=== PATIENT | male | born 1985 | race Caucasian/White ===

== ENCOUNTER 2020-05-27 17:12 | Emergency (ER) | payer OTHER, SELFPAY ==
[2020-05-27 17:15] VITALS: BP 120/65; PULSE 91; TEMP 36.6; O2SAT 97
--- NOTE | 2020-05-27 17:28 | ED.GENADUL_ITS ---
Discharge Plan Disposition Patient Disposition: HOME Condition: Good Discharge Details Chief Complaint: Orthopedic Clinical Impression: Flexor tendon rupture of hand, Hand numbness Primary Care Provider: Rigoberto Srinivasan ED Provider: Fay Baez Home Meds and New Rx's Prescriptions: No Action No Known Home Meds RF: 0 Discharge Instructions Instructions: Tendon Rupture (ED) Additional Instructions: Encourage rest, ice, elevation. Please continue with splint until reevaluated by orthopedics. Please call orthopedics tomorrow to schedule follow-up appointment. If you develop fever/chills, knee pain or other new/worsening symptom please seek care urgently once again. 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 He states that symptoms were first noted 1 week ago upon awakening. He denies any pain. No trauma. He has been working throughout [employer] and does report busy schedule recently. However, he denies any trauma at work. States that he did have a distal radius fracture repaired with hardware in 2008. Denies any pain in this area since then. He reports over the past week he has been unable to flex the right thumb or have sensation in the right thumb or index finger. Describes numbness throughout this region. He denies any fevers or chills. Has not noted any erythema, redness, swelling. On exam, patient is resting comfortably. He appears nontoxic. Exam of the right upper extremity is significant for decreased two-point discrimination on the radial side of the right middle finger, entirety of the index and thumb. He is unable to flex the thumb, is able to abduct fully, slight abduction from the thenar eminence. He has good capillary refill. No swelling, erythema or evidence of trauma. He has otherwise intact neurologic exam. Exam of the forearm reveals a small ball of soft tissue in the mid anterior forearm as well as a palpable defect distal to this consistent with tendinous rupture. Good range of motion of his elbow. He does have a positive Tinel's. Consulted with Dr. Valle. He advised that rarely, patient can suffer tendon rupture associated with the hardware from said fracture repair. However, he states that typically this occurs much sooner after initial surgery. He advised placing the patient in a thumb spica splint and that he would follow-up with the patient shortly. I discussed this plan with the patient who is in agreement. I encouraged rest, ice, elevation. If he develops discomfort he will use Tylenol or ibuprofen. Return precautions were given. All of his questions and concerns were addressed and he is in agreement with this plan. HPI General Mode of arrival: ambulatory . Date/Time Provider Initiated Documentation: 05/27/20 17:28 . Limitations to Documentation: no limitations . Information obtained by: patient and RN notes reviewed . History of Present Illness 34 year old M presents to the emergency department with the chief complaint of right thumb numbness, difficulty with ROM, described as mild (denies any pain), Quality is described as other (numbness ), and is localized to the right and upper extremity. Patient reports no radiation. Patient started experiencing this week(s) (1) and it has been constant. No relieving factors improve symptom(s), No exacerbating factors reported . Patient notes no other symptoms.. Patient did receive the following treatments prior to arrival, none Related Data Home Medications Medication Instructions Recorded Confirmed Unknown [No Known Home Meds] 05/27/20 05/27/20 Allergies Allergy/AdvReac Type Severity Reaction Status Date / Time levofloxacin [From Levaquin] Allergy Intermediate Hives Verified 05/27/20 17:19 Penicillins Allergy Intermediate Anaphylaxsi Unverified 05/27/20 17:19 s venom-honey bee Allergy Unknown Unverified 05/27/20 17:19 [bee venom (honey bee)] General Stated Complaint: Orthopedic BAN: 4 Review of Systems Constitutional Constitutional: Reports as per HPI, Denies chills, Denies fever(s), Denies headache(s) and Denies weakness ENT Ears, Nose, Mouth, and Throat: Denies headache(s) Cardiovascular Cardiovascular: Reports as per HPI Respiratory Respiratory: Reports as per HPI and Denies cough Musculoskeletal Musculoskeletal: Reports as per HPI and Reports numbness Integumentary/Breasts Skin/Breast: Reports as per HPI, Denies rash and Denies wounds Neurologic Neurologic: Reports as per HPI, Denies headache(s), Reports numbness, Reports sensory deficit and Denies weakness [facility] Surgical History appendectomy, laparoscopic (06/24/16) Social History Smoking/Tobacco Use Status: Current every day Tobacco Type: cigarettes Alcohol Intake: current Alcohol Intake frequency: a few times a week Alcohol type: beer and hard liquor Drug use: Never Substance use type: does not use Do you feel safe at home: Yes Do you feel safe in your relationship?: Yes Exam Const General: cooperative, healthy appearing, comfortable, no acute distress, well developed and well groomed Nutritional Appearance: average body habitus and well nourished Orientation: alert and awake Resp Effort & Inspection: normal respiratory effort, able to speak in complete sentences and no respiratory distress Cardio Rate: regular rate Rhythm: regular rhythm Skin General skin exam: no rashes or lesions noted Lesions: no lesions Rashes: no rashes Trauma: no lacerations or abrasions Neuro General: patient alert and patient awake Cognition: normal cognition Speech: speech normal Gait: normal gait Motor: muscle tone normal throughout Sensory Exam: sensory deficits noted (sensation lacking in radial side of right middle as well as index and thumb) Extrem Right upper extremity: normal to inspection, normal capillary refill, no joint enlargement, elbow/forearm Details: swelling (focal area of swelling mid forearm with palpable defect distally); no tenderness, wrist Details: normal to ins pection, normal ROM, deformity (palpable defect concerning for tendon rupture), normal vascular exam and radial pulse present; no tenderness, no swelling and Tinel's positive (positive) and hand Details: normal to inspection, normal capillary refill, neurosensory exam abnormal Details: median nerve sensory function normal Details: decreased two-point discrimination and tendon exam abnormal Location: function absent (Flexion of the thumb); ROM limited and no edema Psych Appearance: grossly normal and well kempt Mental Status: mental status grossly normal Speech and Movement: speech and movement normal Course Vital Signs Vital signs: Vital Signs Temperature 36.6 C 05/27/20 17:15 Pulse 91 H 05/27/20 17:15 Blood Pressure 120/65 05/27/20 17:15 Pulse Oximetry 97 05/27/20 17:15 Temperature 36.6 C 05/27/20 17:15 Temperature Source Temporal Artery Scan 05/27/20 17:15 Pulse 91 H 05/27/20 17:15 Respiratory Effort Non-Labored 05/27/20 17:17 Blood Pressure 120/65 05/27/20 17:15 Blood Pressure Position Sitting 05/27/20 17:15 Pulse Oximetry 97 05/27/20 17:15 Oxygen Delivery Method Room Air 05/27/20 17:15 Oxygen Flow Rate 0 05/27/20 17:15 Pain Level 0 05/27/20 17:15
== END 2020-05-27 18:20 | disposition home or self-care (01) ==
PROVIDERS: Emergency Provider Physician Assistant; PCP Internal Medicine
DX: M66.341 Spontaneous rupture of flexor tendons, right hand (principal); R20.0 Anesthesia of skin
CPT/HCPCS: 29125; 99283; L3807

== ENCOUNTER 2020-06-04 09:16 | Outpatient (CLI) | payer OTHER, SELFPAY ==
--- NOTE | 2020-06-04 08:45 | DI.RAD_ITS ---
EXAM: XR WRIST RT COMPLETE INDICATION: WRIST PAIN. COMPARISON: CR RIGHT WRIST COMPLETE from 03/31/2010 TECHNIQUE: 2D digital imaging was performed. FINDINGS: A volar fixation plate is again noted along the distal radius. There is minimal deformity of the dis xochilt radius and minimal deformity at the articular surface. A nonunited ulnar styloid fracture is see n. There are no abnormal bony lucencies. The carpal alignment appears normal. Impression: Old distal radial fracture and hardware. DATA REPOSITORY: RADIATION DOSE DELIVERED:
== END 2020-06-04 09:36 ==
PROVIDERS: PCP Internal Medicine; Referring Provider Internal Medicine; Visit Provider Orthopaedic Surgery
DX: M25.531 Pain in right wrist (principal); Z96.9 Presence of functional implant, unspecified; Z87.81 Personal history of (healed) traumatic fracture
CPT/HCPCS: 73110

== ENCOUNTER 2020-09-23 07:49 | Emergency (ER) | payer OTHER, SELFPAY ==
[2020-09-23 07:54] VITALS: BP 134/81; PULSE 83; RESP 17; TEMP 36.4; O2SAT 100
--- NOTE | 2020-09-23 07:54 | ED.GENADUL_ITS ---
Discharge Plan Disposition Patient Disposition: HOME Condition: Stable Discharge Details Clinical Impression: Facial swelling Primary Care Provider: Rigoberto Srinivasan ED Provider: Dilma Winn Home Meds and New Rx's Prescriptions: New prednisone 20 mg tablet 40 mg PO DAILY Qty: 8 RF: 0 doxycycline hyclate 100 mg capsule 100 mg PO BID Qty: 20 RF: 0 Discharge Instructions Instructions: Doxycycline (By mouth), Prednisone (By mouth), Cellulitis (DC), General Allergic Reaction (ED) Additional Instructions: Please return immediately to the emergency department if you develop any new or worsening symptoms, if your condition does not improve as expected, or if you become otherwise concerned. It is extremely important that you call soon as possible to make an appointment to be seen in follow-up for this visit by your primary care doctor. It is not clear whether the swelling in your lips and face represents an infection. You have been prescribed an antibiotic. Please do not take the antibiotic unless you develop redness or pain in the areas of swelling. If you do decide to start the antibiotics based on a change in symptoms. You need to be seen immediately in follow-up, either with your primary care doctor or in the emergency department. Referrals: Rigoberto Srinivasan MD [Primary Care Provider] - Discharge Data Discharge Date/Time-TO BE ENTERED AT DEPARTURE: 09/23/20 09:51 Medical Decision Making Jamie Kimble is a 34 y/o man without reported history of major medical problems who presented to the emergency department with facial swelling. On exam patient is well and nontoxic-appearing. There is moderate edema of the upper lip, mild edema bilateral medial maxillary areas, faint erythema of the left maxillary area. No intraoral lesion, no facial tenderness. Exam/history is not consistent with Josemanuel's angina, abscess, other deep space infection, impending airway compromise, sepsis, preseptal/orbital cellulitis. Concern for allergic/inflammatory reaction versus less likely cellulitis. Plan for p.o. prednisone, screening labs. Patient is driving, will hold Benadryl for now. Labs reviewed: normal WBC, no left shift. Mildly elevated CRP. Negative procalcitonin. Doubt cellulitis at this time. Plan for prescription for prednisone burst. Also plan for prescription for doxycycline. I had a lengthy discussion with the patient regarding filling doxycycline prescription if he were to develop pain in the area of the swelling or redness in an area of the swelling. Also that if there does seem to be worsening and he begins taking the antibiotic that he would need to be seen immediately in follow-up for augustus ssessment, either same day at PCPs office or here at the emergency department. I had a lengthy discussion with Patient regarding return to emergency department precautions, home care, and importance of outpatient follow-up. Pt verbalizes understanding of the plan and is amenable. Patient discharged to home with clear plan for outpatient follow-up. All questions were answered. Disposition decision was made weighing the risks and benefits of hospitalization versus outpatient treatment, the risk for further decompensation, and the patient's wishes. Medical Records Medical records reviewed: Yes I reviewed the patient's medical records. Lab Data Lab results reviewed: Yes I reviewed the patient's lab results. Labs: Laboratory Tests Range/Units 09/23/20 09/23/20 09/23/20 08:14 08:14 08:14 WBC (4.4-10.8) 10^3/uL 9.70 RBC (4.36-5.78) 10^6/uL 5.08 Hgb (13.5-17.5) g/dL 15.8 Hct (40.0-50.0) % 46.3 MCV (80-95) fL 91.1 MCH (27.0-33.0) pg 31.1 MCHC (32.0-36.0) % 34.1 RDW (11.8-14.1) % 12.5 Plt Count (130-400) 10^3/uL 249 MPV (8.0-11.0) fL 9.8 Immature Gran % 0.3 Neutrophils % 71.9 Lymphocytes % 15.3 Monocytes % 9.1 Eosinophils % 3.0 Basophils % 0.4 Nucleated RBC % % 0 Absolute Neutrophils (1.2-6.7) 10^3/uL 6.98 H Absolute Lymphocytes (1.2-3.4) 10^3/uL 1.48 Absolute Monocytes (0.1-0.8) 10^3/uL 0.88 H Absolute Eosinophils (0.0-0.7) 10^3/uL 0.29 Absolute Basophils (0.0-0.2) 10^3/uL 0.04 Sodium (136-145) mmol/L 139 Potassium (3.5-5.1) mmol/L 4.1 Chloride (98-107) mmol/L 104 Carbon Dioxide (21.0-32.0) mmol/L 26.8 Anion Gap (3-11) mmol/L 8.2 BUN (7-18) mg/dL 14 Creatinine (0.70-1.30) mg/dL 1.11 Estimated GFR/1.73 m2 (mL/min/1.73m2) >= 60.00 Glucose (74-106) mg/dL 119 H Calcium (8.5-10.1) mg/dL 9.2 Total Bilirubin (0.2-1.0) mg/dL 0.6 AST (15-37) U/L 18 ALT (16-63) U/L 36 Alkaline Phosphatase (46-116) U/L 83 C-Reactive Protein (0.0-0.3) mg/dL 2.73 H Total Protein (6.4-8.2) g/dL 8.1 Albumin (3.4-5.0) g/dL 3.9 Procalcitonin ng/mL < 0.1 HPI General Mode of arrival: ambulatory . Date/Time Provider Initiated Documentation: 09/23/20 07:53 . Limitations to Documentation: no limitations . Information obtained by: patient, RN notes reviewed and old records reviewed . HPI Narrative: Jamie Kimble is a 34-year-old man without reported history of major medical problems presenting to emergency department facial swelling. Patient reports that yesterday morning he woke up and noticed that his upper lip seems somewhat swollen. Patient was unconcerned, thought that may be an insect that bit him. Patient states that throughout the day swelling of his lips seem to progress somewhat. He took Benadryl yesterday without effect. Patient reports that this morning he woke up and noticed that she had mild swelling in the area around his nose bilaterally, also with continued upper lip swelling. Patient reports that he feels otherwise very well and in his usual state of health. He denies any pain in the areas of swelling or otherwise, fever, rash, shortness of breath, cough, vomiting, diarrhea, numbness, weakness. Patient states he has never had similar symptoms in the past. Patient reports that on 09/20 he underwent a vasectomy. No other unusual recent events. Patient is negative no inciting factor. No new medications, no new soaps, no new foods, no trauma. Denies any changes inside of his mouth. No difficulty swallowing. Has been eating and drinking as usual. Related Data Home Medications Medication Instructions Recorded Confirmed doxycycline hyclate 100 mg PO BID #20 cap 09/23/20 prednisone 40 mg PO DAILY #8 tab 09/23/20 Previous Rx's Medication Instructions Recorded doxycycline hyclate 100 mg PO BID #20 cap 09/23/20 prednisone 40 mg PO DAILY #8 tab 09/23/20 Allergies Allergy/AdvReac Type Severity Reaction Status Date / Time levofloxacin [From Levaquin] Allergy Intermediate Hives Verified 09/23/20 07:58 Penicillins Allergy Intermediate Anaphylaxsi Unverified 09/23/20 07:58 s venom-honey bee Allergy Unknown Unverified 09/23/20 07:58 [bee venom (honey bee)] General BAN: 4 Review of Systems Narrative: Constitutional: denies fevers Eyes: denies eye pain, eye redness, visual changes ENT: denies ear pain, dental pain, sore throat, difficulty swallowing, facial pain, intraoral swelling, reports swelling of the upper lip and face around the nose Cardiovascular: denies chest pain Respiratory: denies SOB, cough GI: denies abdominal pain, vomiting, diarrhea : denies flank pain MSK: denies back pain, neck pain, arthralgias, myalgias Skin: denies rash Neuro: denies headaches, numbness, weakness PFSH Surgical History appendectomy, laparoscopic (06/24/16) Social History Smoking/Tobacco Use Status: Current every day Tobacco Type: cigarettes Smoking risk assessment performed?: Yes Alcohol Intake: current Alcohol Intake frequency: a few times a week Alcohol type: beer and hard liquor Drug use: Occasionally Substance use type: marijuana Current gender identity: male Do you feel safe at home: Yes Do you feel safe in your relationship?: Yes Exam Narrative Exam Narrative: Constitutional: well and [id number], pleasant, conversing normally HENT: head atraumatic/normocephalic, mucous membranes moist, moderate edema of the upper lip, normal examination of the lower lip, poor dentition, otherwise unremarkable examination of intraoral cavity and pharynx, uvula midline, no tongue elevation, no intraoral lesion, mild edema bilateral medial maxillary areas, faint erythema of the left maxillary area, no facial or lip tenderness to palpation. Normal voice Eyes: conjunctiva normal, sclera normal, pupils 3mm b/l Neck: no stridor, normal ROM, trachea midline Resp: normal work of breathing, speaking in full sentences Cardio: normal rate, normal rhythm Skin: warm, dry, normal color, no rash Neuro: alert, not altered, grossly non-focal, normal tone Ext: Moving all extremities equally Psych: normal mood, normal affect, normal behavior
[2020-09-23 08:23] LABS: Abs Immature Grans 0.03 10^3/uL (0.0-0.06); Absolute Basophil Count 0.04 10^3/uL (0.0-0.2); Absolute Eosinophil Count 0.29 10^3/uL (0.0-0.7); Absolute Lymphocyte Count 1.48 10^3/uL (1.2-3.4); Absolute Monocyte Count 0.88 10^3/uL (0.1-0.8); Absolute Neutrophil Count 6.98 10^3/uL (1.2-6.7); Basophils % 0.4; HCT 46.3 % (40.0-50.0); HGB 15.8 g/dL (13.5-17.5); Immature Grans % 0.3; Lymphocytes % 15.3; MCH 31.1 pg (27.0-33.0); MCHC 34.1 % (32.0-36.0); MCV 91.1 fL (80-95); MPV 9.8 fL (8.0-11.0); Monocytes % 9.1; Neutrophils % 71.9; Nucleated RBC 0 %; Platelet Count 249 10^3/uL (130-400); RBC 5.08 10^6/uL (4.36-5.78); RDW 12.5 % (11.8-14.1); RDW-SD 41.4 fL
[2020-09-23] MEDS: predniSONE 20 MG TAB 60 MG PO (08:24)
[2020-09-23 08:40] LABS: ALT 36 U/L (16-63); AST 18 U/L (15-37); Albumin 3.9 g/dL (3.4-5.0); Alkaline Phosphatase 83 U/L (46-116); Anion Gap 8.2 mmol/L (3-11); BUN 14 mg/dL (7-18); Bilirubin, Total 0.6 mg/dL (0.2-1.0); C-Reactive Protein 2.73 mg/dL (0.0-0.3); CO2 26.8 mmol/L (21.0-32.0); CREATININE 1.11 mg/dL (0.70-1.30); Calcium 9.2 mg/dL (8.5-10.1); Chloride 104 mmol/L (98-107); Glucose 119 mg/dL (74-106); Potassium 4.1 mmol/L (3.5-5.1); Sodium 139 mmol/L (136-145); Total Protein 8.1 g/dL (6.4-8.2)
[2020-09-23 09:05] LABS: Procalcitonin < 0.1 ng/mL
[2020-09-23 09:41] VITALS: BP 108/67; PULSE 85; RESP 17; TEMP 36.4; O2SAT 97
== END 2020-09-23 09:51 | disposition home or self-care (01) ==
PROVIDERS: Emergency Provider Student in an Organized Health Care Education/Training Program; PCP Internal Medicine
DX: R60.0 Localized edema (principal)
CPT/HCPCS: 36415; 80053; 84145; 99283; 85025; 86140; J7512

== ENCOUNTER 2021-02-27 19:44 | Emergency (ER) | payer OTHER, SELFPAY ==
[2021-02-27 19:47] VITALS: BP 131/89; PULSE 60; RESP 18; TEMP 36.4; O2SAT 100
--- NOTE | 2021-02-27 19:54 | W.ED.GENAD ---
Discharge Plan Disposition Patient Disposition: HOME Condition: Stable Discharge Details Clinical Impression: Fracture of distal phalanx of finger of left hand Primary Care Provider: Rigoberto Srinivasan ED Provider: Lucía Peguero Home Meds and New Rx's Prescriptions: No Action prednisone 20 mg tablet 40 mg PO DAILY Qty: 8 RF: 0 doxycycline hyclate 100 mg capsule 100 mg PO BID Qty: 20 RF: 0 Discharge Instructions Instructions: Finger Fracture (ED) Additional Instructions: Follow up with primary care provider in 3-5 days. Return to ED sooner if any worsening or concerns. Increase oral fluids. Please take Tylenol or Ibuprofen with food every 4-6 hours as needed for pain and swelling. Wear the splint as needed for comfort, rest ice compression elevation Referrals: Rigoberto Srinivasan MD [Primary Care Provider] - Discharge Data Discharge Date/Time-TO BE ENTERED AT DEPARTURE: 02/27/21 20:45 Medical Decision Making <Lucía Peguero - Last Filed: 02/27/21 21:42> 35-year-old male presents to the ER chief complaint of left middle finger bruising status post crush injury 4 days ago. He reports a subungual hematoma which he attempted to reduce the pressure with his nail with a safety pin. There is very little puncture reyes noted to his nail. He reports he did not get a lot of blood expressed. He is not in severe pain upon arrival. He does have some tenderness with the AC joint pain. Cap refill less than 2 seconds to the distal finger. No other injuries or complaints at this time. Imaging protocol: XR Left fingers. Views: Minimum 2 views. COMPARISON: No relevant prior studies available. FINDINGS: Bones/joints: There is comminuted, nondisplaced tuft fracture of the distal left 3rd phalanx. Fracture is essentially anatomic in alignment. No articular involvement. No additional fracture identified. No acute joint dislocation. Joint spaces appear preserved. Soft tissues: Moderate soft tissue edema of the distal left 3rd finger. IMPRESSION: Comminuted, nondisplaced tuft fracture of the distal left 3rd phalanx without articular involvement. Discussed option for evacuation of the subungual hematoma with cautery patient declined at this time. Placed in a aluminum splint discussed RICE procedures for home and follow-up with Ortho patient verbalized understanding <Geovanny Winn MD - Last Filed: 03/04/21 22:23> Patient seen, examined, and discussed with PASCUAL Peguero. I agree with treatment plan as discussed/documented. Plan for splint and follow-up orthopedics. HPI <Lucía Peguero - Last Filed: 02/27/21 21:42> General Mode of arrival: ambulatory. Date/Time Provider Initiated Documentation: 02/27/21 19:54. Limitations to Documentation: no limitations. Information obtained by: patient. HPI Narrative: 35-year-old male presents to the ER chief complaint of left middle finger bruising status post crush injury 4 days ago. He reports a subungual hematoma which he attempted to reduce the pressure with his nail with a safety pin. There is very little puncture reyes noted to his nail. He reports he did not get a lot of blood expressed. He is not in severe pain upon arrival. He does have some tenderness with the AC joint pain. Cap refill less than 2 seconds to the distal finger. No other injuries or complaints at this time. Related Data Home Medications Medication Instructions Recorded Confirmed doxycycline hyclate 100 mg PO BID #20 cap 09/23/20 prednisone 40 mg PO DAILY #8 tab 09/23/20 Previous Rx's Medication Instructions Recorded doxycycline hyclate 100 mg PO BID #20 cap 09/23/20 prednisone 40 mg PO DAILY #8 tab 09/23/20 Allergies Allergy/AdvReac Type Severity Reaction Status Date / Time levofloxacin [From Levaquin] Allergy Intermediate Hives Verified 09/23/20 07:58 Penicillins Allergy Intermediate Anaphylaxsi Unverified 09/23/20 07:58 s venom-honey bee Allergy Unknown Unverified 09/23/20 07:58 [bee venom (honey bee)] General Stated Complaint: GenMedical BAN: 5 Review of Systems <Lucía Peguero - Last Filed: 02/27/21 21:42> All systems reviewed & are unremarkable except as noted in HPI and below Musculoskeletal Musculoskeletal: Reports arthralgias (Left distal Finger subungal hematoma) and Reports joint swelling PFSH <Lucía Peguero - Last Filed: 02/27/21 21:42> Surgical History appendectomy, laparoscopic (06/24/16) Social History Smoking/Tobacco Use Status: Current every day Tobacco Type: cigarettes Smoking risk assessment performed?: Yes Alcohol Intake: current Alcohol Intake frequency: a few times a week Alcohol type: beer and hard liquor Drug use: Occasionally Substance use type: marijuana Current gender identity: male Do you feel safe at home: Yes Do you feel safe in your relationship?: Yes Exam <Lucíamagda Peguero - Last Filed: 02/27/21 21:42> Extrem Left upper extremity: hand Details: normal capillary refill, neurosensory exam normal, tenderness, swelling, ecchymosis and puncture wound (Nail) Course <Lucíamagda Rodriguezton - Last Filed: 02/27/21 21:42> Vital Signs Vital signs: Vital Signs Temperature 36.4 C L 02/27/21 19:47 Pulse 60 02/27/21 19:47 Respiratory Rate 18 02/27/21 19:47 Blood Pressure 131/89 02/27/21 19:47 Pulse Oximetry 100 02/27/21 19:47 Temperature 36.4 C L 02/27/21 19:47 Temperature Source Temporal Artery Scan 02/27/21 19:47 Pulse 60 02/27/21 19:47 Respiratory Rate 18 02/27/21 19:47 Blood Pressure 131/89 02/27/21 19:47 Blood Pressure Position Sitting 02/27/21 19:47 Pulse Oximetry 100 02/27/21 19:47 Oxygen Delivery Method Room Air 02/27/21 19:47 Oxygen Flow Rate 0 02/27/21 19:47 Pain Level 0 02/27/21 19:47
--- NOTE | 2021-02-27 20:11 | DI.RAD_ITS ---
Exam(s) XR FINGER LT MIDDLE EXAM: XR FINGER LT MIDDLE CLINICAL HISTORY: Crush injury, R/O fracture. TECHNIQUE: 2D digital imaging was performed. COMPARISON: None. FINDINGS: BONES: Comminuted fracture of the tuft with fracture lines extending through the mid to proximal aspe ct of the distal phalanx. There is no separation at the articular surface. No additional fractures are seen.. No bony destructive lesion is seen. JOINTS: No dislocation present. SOFT TISSUE: Swelling around the distal phalanx. No foreign body or abnormal gas collection. IMPRESSION: Comminuted fracture of the distal phalanx. DATA REPOSITORY: RADIATION DOSE DELIVERED:
--- NOTE | 2021-02-27 20:21 | DI.VRAD_ITS ---
PROCEDURE INFORMATION: Exam: XR Left Finger(s) Exam date and time: 02/27/2021 7:54 PM Age: 35 years old Clinical indication: Injury or trauma; Other: Crush injury; Blunt trauma (contusions or hematomas); Left; Middle finger TECHNIQUE: Imaging protocol: XR Left fingers. Views: Minimum 2 views. COMPARISON: No relevant prior studies available. FINDINGS: Bones/joints: There is comminuted, nondisplaced tuft fracture of the distal left 3rd phalanx. Fracture is essentially anatomic in alignment. No articular involvement. No additional fracture identified. No acute joint dislocation. Joint spaces appear preserved. Soft tissues: Moderate soft tissue edema of the distal left 3rd finger. IMPRESSION: Comminuted, nondisplaced tuft fracture of the distal left 3rd phalanx without articular involvement. Dictated and Authenticated by: Thomas Baumann MD. Ordering:ELLY Castrejon MD
[2021-02-27 20:55] VITALS: BP 128/74; PULSE 68; RESP 16; O2SAT 99
== END 2021-02-27 20:45 | disposition home or self-care (01) ==
PROVIDERS: Emergency Provider Registered Nurse Emergency; PCP Internal Medicine
DX: S62.633A Displaced fracture of distal phalanx of left middle finger, initial encounter for closed fracture (principal); W27.8XXA Contact with other nonpowered hand tool, initial encounter
CPT/HCPCS: 29130; 99283; 73140

== ENCOUNTER 2023-07-15 12:19 | Emergency (ER) | payer MEDICAID, SELFPAY ==
[2023-07-15 12:22] VITALS: BP 122/69; PULSE 65; RESP 18; TEMP 36.7; O2SAT 100
--- NOTE | 2023-07-15 12:39 | ED.GENADUL_ITS ---
Discharge Plan Disposition Patient Disposition: Home Condition: Good Discharge Details Clinical Impression: Cellulitis Primary Care Provider: Rigoberto Srinivasan ED Provider: Minda Solorzano Home Meds and New Rx's Prescriptions: New doxycycline hyclate 100 mg tablet,delayed release (DR/EC) 100 mg PO BID Qty: 14 0RF No Action prednisone 20 mg tablet 40 mg PO DAILY Qty: 8 0RF Patient Comments: no longer taking Rx Instructions: Please begin taking 09/24/20 doxycycline hyclate 100 mg capsule 100 mg PO BID Qty: 20 0RF Patient Comments: no longer taking Discharge Instructions Instructions: Cellulitis (ED) Additional Instructions: Take the antibiotic twice a day until it is all gone. Return to the emergency department if your symptoms worse, if they do not improve within 48 hours, you get a fever, or if you have any other concerns. Medical Decision Making 37yo M with hx prior MRSA skin infections presenting with 2-3 days of erythema to lower abdomen. No systemic symptoms. Vital signs reassuring on arrival, on exam he has a ~3cm circular area of cellulitis, no evident abscess, would not drain. Treating for presumptive MRSA with course of doxycycline. Discharged home; discharge instructions including return precautions were reviewed with patient who verbalized understanding. All questions were answered and they are in full agreement with the plan. HPI General Mode of arrival: ambulatory . Date/Time Provider Initiated Documentation: 07/15/23 12:30 . Limitations to Documentation: no limitations . Information obtained by: patient . HPI Narrative: 37yo previously healthy male presenting for erythema and tenderness to lower abdomen for 2 days. First noted after crawling around repairing basement, no injury or break in skin noted at that time. Does have a history of prior MRSA skin infections. Systemically well, otherwise in his usual state of health. No fevers, chills, nausea, vomiting, abdominal pain, malaise, lethargy, or other concerns. Related Data Home Medications Medication Instructions Recorded Confirmed doxycycline hyclate 100 mg capsule 100 mg PO BID #20 caps 09/23/20 prednisone 20 mg tablet 40 mg PO DAILY #8 tabs 09/23/20 doxycycline hyclate 100 mg 100 mg PO BID #14 tabs 07/15/23 tablet,delayed release Previous Rx's Medication Instructions Recorded doxycycline hyclate 100 mg capsule 100 mg PO BID #20 caps 09/23/20 prednisone 20 mg tablet 40 mg PO DAILY #8 tabs 09/23/20 doxycycline hyclate 100 mg 100 mg PO BID #14 tabs 07/15/23 tablet,delayed release Allergies Allergy/AdvReac Type Severity Reaction Status Date / Time levofloxacin [From Levaquin] Allergy Intermediate Hives Verified 07/15/23 12:26 Penicillins Allergy Intermediate Anaphylaxsi Unverified 07/15/23 12:26 s venom-honey bee Allergy Unknown Unverified 07/15/23 12:26 [bee venom (honey bee)] General Stated Complaint: Cellulitis BAN: 4 Review of Systems Narrative: see HPI PFSH All Active Problems (Updated 07/15/23 @ 12:39 by Minda Solorzano MD) Fracture of distal phalanx of finger of left hand (Acute) Cellulitis (Acute) Acute appendicitis (Acute) Surgical History appendectomy, laparoscopic (06/24/16) Social History Smoking/Tobacco Use Status: Current every day Tobacco Type: e-cigarettes Smoking risk assessment performed?: Yes Alcohol Intake: former Drug use: Occasionally Substance use type: marijuana Current gender identity: male Do you feel safe at home: Yes Do you feel safe in your relationship?: Yes Exam Narrative Exam Narrative: General: Alert, well appearing, well nourished, in no acute distress. Head: Normocephalic, atraumatic Neck: Trachea midline, Neck supple. Cardiac: No cyanosis. Resp: No respiratory distress. Speaking in full sentences. Abd: Soft, non-distended, nontender. Lower central abdomen with 3cm circular area of erythema with central induration. No discharge, no palpable abscess or fluctuance. Extremities: No deformities. No peripheral edema. Neurologic: GCS 15. Moves all extremities freely against gravity Course Vital Signs Vital signs: Vital Signs Temperature 36.7 C 07/15/23 12:22 Pulse 65 07/15/23 12:22 Respiratory Rate 18 07/15/23 12:22 Blood Pressure 122/69 07/15/23 12:22 Pulse Oximetry 100 07/15/23 12:22 Temperature 36.7 C 07/15/23 12:22 Temperature Source Skin 09/28/23 12:22 Pulse 65 07/15/23 12:22 Respiratory Rate 18 07/15/23 12:22 Respiratory Effort Normal, Non-Labored 07/15/23 12:26 Blood Pressure 122/69 07/15/23 12:22 Pulse Oximetry 100 07/15/23 12:22 Oxygen Delivery Method Room Air 07/15/23 12:22 Oxygen Flow Rate 0 07/15/23 12:22 Pain Level 7 07/15/23 12:22
[2023-07-15 12:47] VITALS: BP 122/69; PULSE 65; RESP 18; TEMP 36.7; O2SAT 100
[2023-07-15] MEDS: Doxycycline Hyclate 100 MG CAP PO (12:47)
== END 2023-07-15 12:47 | disposition home or self-care (01) ==
PROVIDERS: Emergency Provider Student in an Organized Health Care Education/Training Program; PCP Internal Medicine
DX: L03.311 Cellulitis of abdominal wall; Z86.14 Personal history of Methicillin resistant Staphylococcus aureus infection; F17.200 Nicotine dependence, unspecified, uncomplicated
CPT/HCPCS: 99283

== ENCOUNTER 2024-07-03 01:26 | Emergency (ER) | payer MEDICAID, SELFPAY ==
[2024-07-03 01:37] VITALS: BP 123/76; PULSE 60; RESP 16; TEMP 37.4; O2SAT 98
--- NOTE | 2024-07-03 01:44 | ED.GENADUL_ITS ---
Discharge Plan Disposition Patient Disposition: Home Condition: Good Discharge Details Clinical Impression: Cellulitis of arm, right Primary Care Provider: Rigoberto Srinivasan ED Provider: Lupillo Reed Home Meds and New Rx's Prescriptions: New doxycycline hyclate 100 mg tablet 100 mg PO BID Qty: 20 0RF Discharge Instructions Instructions: Cellulitis (Skin Infection), Adult ED Additional Instructions: At this time you have evidence of infection in your skin. Please take the antibiotic as directed. Please be cautioned that while on this antibiotic your skin can be more sensitive to the sun. Please avoid any dairy or significant calcium supplements while on this antibiotic as that can diminish its effectiveness. Please make sure that you take the antibiotic with food as it can otherwise cause nausea. If you notice any worsening of your symptoms, or any new symptoms such as vomiting, diarrhea, fever, chills, shortness of breath, chest pain, numbness, weakness, or fainting , please return immediately to the emergency department for reevaluation. Please follow up with your primary care provider as soon as possible for reassessment and reevaluation. As always, it was a pleasure participating in your medical care today. Referrals: Rigoberto Srinivasan MD [Primary Care Provider] - [facility] General Date/Time Provider Initiated Documentation: 07/03/24 01:31 . HPI Narrative: 38-year-old male with a past medical history of MRSA cellulitis and abscesses in the past, presents today for evaluation of redness on his right elbow. Patient states that for the last 1 to 2 weeks he has had a mild pimple area that has grown in size and redness pain and tenderness. He has not received any antibiotics. He denies fever or chills. He denies any pain in the elbow itself, rather just on the skin at the focal area of redness. He denies any trauma. No other complaints at this time. Related Data Home Medications ?Medication ?Instructions ?Recorded ?Confirmed doxycycline hyclate 100 mg tablet 100 mg PO BID #20 tabs 07/03/24 Previous Rx's ?Medication ?Instructions ?Recorded doxycycline hyclate 100 mg tablet 100 mg PO BID #20 tabs 07/03/24 Allergies Allergy/AdvReac Type Severity Reaction Status Date / Time levofloxacin (From Levaquin) Allergy Intermediate Hives Verified 07/03/24 01:35 Penicillins Allergy Intermediate Anaphylaxsi Verified 07/03/24 01:35 s venom-honey bee (bee venom Allergy Unknown Anaphylaxis Verified 07/03/24 01:35 (honey bee)) General Stated Complaint: RashLesion BAN: 4 Review of Systems All systems reviewed & are unremarkable except as noted in HPI and below Exam Narrative Exam Narrative: 1.Const: Well-nourished, Well-developed, appearing stated age 2.Eyes: PERRL, no conjunctival injection, and symmetrical lids. 3.ENT: Atraumatic external nose and ears. Moist MM. Neck: Symmetric, trachea midline, No thyromegaly. 4.CVS: +S1/S2, No murmurs or gallops. Peripheral pulses 2+ and equal in all extremities. Brisk capillary refill in all extremities. 5.RESP: Unlabored respiratory effort. Clear to auscultation bilaterally. No wheezes rales or rhonchi 6.GI: Soft, Nontender/Nondistended, No hepatosplenomegaly. No guarding or rebound. 7.MSK: Normocephalic/Atraumatic, Extremities w/o deformity or ttp No cyanosis or clubbing, Normal movement of all extremities 8.Skin: Warm, Dry. Over the patient's right elbow he does demonstrate an area of redness inflammation and induration. Diameter is roughly 2 cm, small area of central fluctuance, no active drainage or discharge. No redness around the elbow itself, no pain with movement of the elbow. 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 Sensation grossly intact, no focal neurologic deficits. 10.Psych: (AAO) x3. Appropriate mood and affect Course Vital Signs Vital signs: Vital Signs Temperature 37.4 C 07/03/24 01:37 Pulse 60 07/03/24 01:37 Respiratory Rate 16 07/03/24 01:37 Blood Pressure 123/76 07/03/24 01:37 Pulse Oximetry 98 07/03/24 01:37 Temperature 37.4 C 07/03/24 01:37 Temperature Source Temporal Artery Scan 07/03/24 01:37 Pulse 60 07/03/24 01:37 Respiratory Rate 16 07/03/24 01:37 Respiratory Effort Normal 07/03/24 01:40 Blood Pressure 123/76 07/03/24 01:37 Blood Pressure Position Sitting 07/03/24 01:37 Pulse Oximetry 98 07/03/24 01:37 Oxygen Delivery Method Room Air 07/03/24 01:37 Oxygen Flow Rate 0 07/03/24 01:37 Pain Level 8 07/03/24 01:37 Procedures Abscess I/D Site: Upper Extremity Side (if applicable): Right Technique: Needle Aspiration Amount of fluid expressed (mL): 0 Irrigation: No Packing used?: None Medical Decision Making 38-year-old male with a past medical history of MRSA cellulitis and abscesses in the past, presents today for evaluation of redness on his right elbow. Patient states that for the last 1 to 2 weeks he has had a mild pimple area that has grown in size and redness pain and tenderness. He has not received any antibiotics. He denies fever or chills. He denies any pain in the elbow itself, rather just on the skin at the focal area of redness. He denies any trauma. No other complaints at this time. Over the patient's right elbow he does demonstrate an area of redness inflammation and induration. Diameter is roughly 2 cm, small area of central fluctuance, no active drainage or discharge. No redness around the elbow itself, no pain with movement of the elbow. Bedside ultrasound was performed and there is a small area of fluid collection in the center. She discussed various options for drainage with the patient, patient elects for single needle aspiration. Needle aspiration was performed with patient's consent. He tolerat ed this well, but no significant fluid was removed. No evidence to suggest a septic joint, septic bursitis, or other concerning etiology. Patient's symptoms appear to be clinically consistent with cellulitis with mild/early abscess. Will start the patient on doxycycline for MRSA coverage, will give a dose here and a prescription for home use. I have extensively reviewed the treatment plan and discharge instructions with the patient. I have addressed all patient concerns at this time. The patient was made aware of what symptoms to monitor for that would warrant a return to the emergency department. Discussed the plan with the patient, they demonstrate verbal understanding and agreement with our assessment and plan at this time. The documentation in this chart was dictated using [employer]It dictation software. Please excuse any dictation errors. Quality:SDOH Health Related Social Needs: No Data to Display PFSH All Active Problems Cellulitis of arm, right (Acute) Fracture of distal phalanx of finger of left hand (Acute) Acute appendicitis (Acute) Surgical History appendectomy, laparoscopic (06/24/16) Social History Smoking/Tobacco Use Status: Current every day Tobacco Type: e-cigarettes Smoking risk assessment performed?: Yes Alcohol Intake: former Drug use: Occasionally Substance use type: marijuana Current gender identity: male Do you feel safe at home: Yes Do you feel safe in your relationship?: Yes
[2024-07-03] MEDS: Doxycycline Hyclate 100 MG, 2 CAPS/BTL PO (01:50)
[2024-07-03] MEDS: Doxycycline Hyclate 100 MG CAP PO (01:50)
--- NOTE | 2024-07-03 11:26 | NUR.NOTE ---
Accessed PT chart to look up the antibiotic given to Pt [facility].
== END 2024-07-03 01:50 | disposition home or self-care (01) ==
PROVIDERS: Emergency Provider Student in an Organized Health Care Education/Training Program; PCP Internal Medicine
DX: L03.113 Cellulitis of right upper limb (principal); F17.290 Nicotine dependence, other tobacco product, uncomplicated; Z86.14 Personal history of Methicillin resistant Staphylococcus aureus infection
CPT/HCPCS: 10160; 99283